=== PATIENT | male | born 1970 | race Caucasian/White ===

== ENCOUNTER 2018-04-30 17:41 | Emergency (ER) | payer OTHER ==
[~2018-04-30] VITALS: Ht 177.8 cm; Wt 95.3 kg
[2018-04-30 18:11] VITALS: Ht 177.8 cm; Wt 95.3 kg
[2018-04-30 18:47] VITALS: BP 152/103
== END 2018-04-30 18:47 | disposition home or self-care (01) ==
LOC: ED 17:41
DX: S82.892A Other fracture of left lower leg, initial encounter for closed fracture (principal); X58.XXXA Exposure to other specified factors, initial encounter; Y93.89 Activity, other specified; Y92.89 Other specified places as the place of occurrence of the external cause; Y99.8 Other external cause status

== ENCOUNTER 2018-08-05 17:55 | Inpatient (IN) | payer OTHER ==
[~2018-08-05] VITALS: Ht 177.8 cm; Wt 97.0 kg
[2018-08-05] MEDS ORDERED: TRAMADOL HCL50 MG PO (19:08)
[2018-08-05] MEDS ORDERED: IBUPROFEN400 MG PO (19:09)
[2018-08-05 19:18] LABS: BASOPHIL % 0.8 % (0-2); CALCIUM 7.8 mg/dL (8.5-10.1); CARBON DIOXIDE 24.7 mmol/L (21-32); CHLORIDE SERUM 104 mmol/L (98-107); CREATININE SERUM 1.1 mg/dL (0.7-1.3); GFR1 > 60 mL/min; GLUCOSE SERUM 128 mg/dL (74-106); PLATELET COUNT 209 x10^3mcL (130-400); RED CELL DISTRIBUTION WIDTH 13.9 % (11.5-14.5); SODIUM SERUM 138 mmol/L (136-145)
[2018-08-05 19:37] LABS: AMPHETAMINE QUAL UR NONE DETECTED (See below)
[2018-08-05 20:11] LABS: T3 TOTAL 0.95 ng/mL
[2018-08-05 20:19] LABS: AMYLASE 66 U/L (25-115); HDL CHOLESTEROL 46 mg/dL (40-60); LIPASE 214 IU/L (73-393); MAGNESIUM 2.1 mg/dL (1.8-2.4); PHOSPHOROUS 3.4 mg/dL (2.5-4.9)
[2018-08-05 20:25] LABS: CHOLESTEROL 230 mg/dL (<200); TRIGLYCERIDES 526 mg/dL (<150)
[2018-08-05 20:31] VITALS: BP 151/103
[2018-08-05 20:33] VITALS: Ht 177.8 cm; Wt 97.0 kg
[2018-08-05 20:45] LABS: FREE T4 1.25 ng/dL (0.76-1.46); FREE THYROXINE INDEX 3.3 ug/dL (1.4-4.5)
[2018-08-06 05:23] VITALS: BP 137/84
[2018-08-06 06:28] LABS: CALCIUM 7.3 mg/dL (8.5-10.1); CHLORIDE SERUM 106 mmol/L (98-107); CREATININE SERUM 0.9 mg/dL (0.7-1.3); GFR1 > 60 mL/min; GLUCOSE SERUM 99 mg/dL (74-106); POTASSIUM SERUM 3.7 mmol/L (3.5-5.1); SODIUM SERUM 137 mmol/L (136-145)
[2018-08-06 06:29] LABS: BASOPHIL % 0.7 % (0-2); PLATELET COUNT 158 x10^3mcL (130-400); RED CELL DISTRIBUTION WIDTH 14.5 % (11.5-14.5)
[2018-08-06 09:43] VITALS: BP 156/94
[2018-08-06 13:35] VITALS: BP 159/96
[2018-08-06 16:23] VITALS: BP 170/98
[2018-08-06 20:25] VITALS: BP 173/101
[2018-08-06 22:35] VITALS: BP 141/87
[2018-08-07 05:43] VITALS: BP 164/96
[2018-08-07 06:33] VITALS: BP 168/96
[2018-08-07 07:18] LABS: CHLORIDE SERUM 105 mmol/L (98-107); CREATININE SERUM 0.8 mg/dL (0.7-1.3); GFR1 > 60 mL/min; GLUCOSE SERUM 95 mg/dL (74-106); POTASSIUM SERUM 3.6 mmol/L (3.5-5.1); SODIUM SERUM 136 mmol/L (136-145)
[2018-08-07 07:19] LABS: BASOPHIL % 0.9 % (0-2); RED CELL DISTRIBUTION WIDTH 13.9 % (11.5-14.5)
[2018-08-07 08:07] LABS: PLATELET COUNT 111 x10^3mcL (130-400)
[2018-08-07 09:30] VITALS: BP 155/101
[2018-08-07 13:00] VITALS: BP 159/84
[2018-08-07 17:43] VITALS: BP 158/98
[2018-08-07 20:58] VITALS: BP 166/95
[2018-08-08] VITALS (7 sets, daily range): BP systolic 140–155; BP diastolic 86–99
[2018-08-08 06:23] LABS: BASOPHIL % 0.6 % (0-2); RED CELL DISTRIBUTION WIDTH 13.9 % (11.5-14.5)
[2018-08-08 06:32] LABS: CALCIUM 8.2 mg/dL (8.5-10.1); CARBON DIOXIDE 27.5 mmol/L (21-32); CHLORIDE SERUM 105 mmol/L (98-107); CREATININE SERUM 0.9 mg/dL (0.7-1.3); GFR1 > 60 mL/min; GLUCOSE SERUM 88 mg/dL (74-106); POTASSIUM SERUM 3.9 mmol/L (3.5-5.1); SODIUM SERUM 141 mmol/L (136-145)
[2018-08-08 06:45] LABS: PLATELET COUNT 96 x10^3mcL (130-400)
[2018-08-09 05:05] VITALS: BP 133/88
[2018-08-09 06:32] LABS: BASOPHIL % 0.6 % (0-2); RED CELL DISTRIBUTION WIDTH 13.8 % (11.5-14.5)
[2018-08-09 06:44] LABS: CALCIUM 8.6 mg/dL (8.5-10.1); CARBON DIOXIDE 28.7 mmol/L (21-32); CHLORIDE SERUM 106 mmol/L (98-107); GFR1 > 60 mL/min; GLUCOSE SERUM 88 mg/dL (74-106); MAGNESIUM 1.9 mg/dL (1.8-2.4); PHOSPHOROUS 5.1 mg/dL (2.5-4.9); SODIUM SERUM 143 mmol/L (136-145)
[2018-08-09 06:55] LABS: PLATELET COUNT 98 x10^3mcL (130-400)
[2018-08-09 09:41] VITALS: BP 152/87
[2018-08-09 12:41] VITALS: BP 142/79
[2018-08-09 17:21] VITALS: BP 149/91
[2018-08-09 20:24] VITALS: BP 145/87
[2018-08-10] VITALS (13 sets, daily range): BP systolic 14–163; BP diastolic 87–96
[2018-08-10 06:45] LABS: CALCIUM 8.9 mg/dL (8.5-10.1); CARBON DIOXIDE 28.6 mmol/L (21-32); CHLORIDE SERUM 106 mmol/L (98-107); CREATININE SERUM 0.9 mg/dL (0.7-1.3); GFR1 > 60 mL/min; GLUCOSE SERUM 82 mg/dL (74-106); MAGNESIUM 2.1 mg/dL (1.8-2.4); PHOSPHOROUS 4.1 mg/dL (2.5-4.9); POTASSIUM SERUM 3.6 mmol/L (3.5-5.1); SODIUM SERUM 142 mmol/L (136-145)
[2018-08-10 06:50] LABS: BASOPHIL % 0.6 % (0-2); RED CELL DISTRIBUTION WIDTH 13.4 % (11.5-14.5)
[2018-08-10 06:54] LABS: PLATELET COUNT 115 x10^3mcL (130-400)
[2018-08-11 05:35] VITALS: BP 153/87
[2018-08-11 06:42] LABS: BASOPHIL % 0.3 % (0-2); RED CELL DISTRIBUTION WIDTH 14.4 % (11.5-14.5)
[2018-08-11 07:02] LABS: PLATELET COUNT 119 x10^3mcL (130-400)
[2018-08-11 07:08] LABS: CALCIUM 8.9 mg/dL (8.5-10.1); CHLORIDE SERUM 105 mmol/L (98-107); CREATININE SERUM 0.9 mg/dL (0.7-1.3); GFR1 > 60 mL/min; GLUCOSE SERUM 79 mg/dL (74-106); MAGNESIUM 2.1 mg/dL (1.8-2.4); PHOSPHOROUS 4.3 mg/dL (2.5-4.9); SODIUM SERUM 140 mmol/L (136-145)
[2018-08-11 09:16] VITALS: BP 140/92
[2018-08-11 14:15] VITALS: BP 137/85
[2018-08-11 23:04] VITALS: BP 116/82
[2018-08-12 03:12] VITALS: BP 104/61
[2018-08-12 05:35] LABS: BASOPHIL % 0.2 % (0-2); PLATELET COUNT 157 x10^3mcL (130-400); RED CELL DISTRIBUTION WIDTH 14.5 % (11.5-14.5)
[2018-08-12 05:53] LABS: CALCIUM 8.2 mg/dL (8.5-10.1); CARBON DIOXIDE 26.6 mmol/L (21-32); CHLORIDE SERUM 107 mmol/L (98-107); CREATININE SERUM 1.1 mg/dL (0.7-1.3); GFR1 > 60 mL/min; GLUCOSE SERUM 119 mg/dL (74-106); POTASSIUM SERUM 4.1 mmol/L (3.5-5.1); SODIUM SERUM 144 mmol/L (136-145)
[2018-08-12 07:30] VITALS: BP 121/82
[2018-08-12 11:47] VITALS: BP 115/72
[2018-08-12 20:39] VITALS: BP 117/71
[2018-08-13 05:19] VITALS: BP 124/76
[2018-08-13 06:13] LABS: BASOPHIL % 0.3 % (0-2); PLATELET COUNT 158 x10^3mcL (130-400)
[2018-08-13 06:38] LABS: RED CELL DISTRIBUTION WIDTH 14.8 % (11.5-14.5)
[2018-08-13 06:52] LABS: CALCIUM 8.4 mg/dL (8.5-10.1); CARBON DIOXIDE 25.9 mmol/L (21-32); CHLORIDE SERUM 108 mmol/L (98-107); CREATININE SERUM 0.9 mg/dL (0.7-1.3); GFR1 > 60 mL/min; GLUCOSE SERUM 89 mg/dL (74-106); POTASSIUM SERUM 3.6 mmol/L (3.5-5.1); SODIUM SERUM 141 mmol/L (136-145)
[2018-08-13 09:31] VITALS: BP 113/70
[2018-08-13 12:29] VITALS: BP 118/72
[2018-08-13 17:30] VITALS: BP 130/78
[2018-08-13 20:56] VITALS: BP 118/72
[2018-08-14 05:25] VITALS: BP 140/88
[2018-08-14 06:16] LABS: CARBON DIOXIDE 28.7 mmol/L (21-32); CHLORIDE SERUM 111 mmol/L (98-107); CREATININE SERUM 0.9 mg/dL (0.7-1.3); GFR1 > 60 mL/min; GLUCOSE SERUM 90 mg/dL (74-106); POTASSIUM SERUM 3.7 mmol/L (3.5-5.1); SODIUM SERUM 147 mmol/L (136-145)
[2018-08-14 06:46] LABS: BASOPHIL % 0.6 % (0-2); PLATELET COUNT 191 x10^3mcL (130-400)
[2018-08-14 07:02] LABS: RED CELL DISTRIBUTION WIDTH 14.7 % (11.5-14.5)
[2018-08-14 09:38] VITALS: BP 122/77
[2018-08-14 12:49] VITALS: BP 132/84
[2018-08-14 17:00] VITALS: BP 137/81
[2018-08-14 20:20] VITALS: BP 123/78
[2018-08-15 05:51] VITALS: BP 126/79
[2018-08-15 06:36] LABS: BASOPHIL % 0.6 % (0-2); CALCIUM 8.3 mg/dL (8.5-10.1); CARBON DIOXIDE 27.7 mmol/L (21-32); CHLORIDE SERUM 112 mmol/L (98-107); CREATININE SERUM 0.9 mg/dL (0.7-1.3); GFR1 > 60 mL/min; GLUCOSE SERUM 91 mg/dL (74-106); PLATELET COUNT 249 x10^3mcL (130-400); POTASSIUM SERUM 3.9 mmol/L (3.5-5.1); RED CELL DISTRIBUTION WIDTH 13.6 % (11.5-14.5); SODIUM SERUM 149 mmol/L (136-145)
[2018-08-15 08:56] VITALS: BP 135/91
[2018-08-15 13:09] VITALS: BP 139/87
[2018-08-15 21:47] VITALS: BP 137/87
[2018-08-16 06:01] VITALS: BP 137/85
[2018-08-16 06:32] LABS: BASOPHIL % 0.4 % (0-2); PLATELET COUNT 269 x10^3mcL (130-400)
[2018-08-16 06:53] LABS: RED CELL DISTRIBUTION WIDTH 14.8 % (11.5-14.5)
[2018-08-16 07:00] LABS: CALCIUM 8.8 mg/dL (8.5-10.1); CARBON DIOXIDE 28.3 mmol/L (21-32); CHLORIDE SERUM 108 mmol/L (98-107); GFR1 > 60 mL/min; GLUCOSE SERUM 87 mg/dL (74-106); POTASSIUM SERUM 4.1 mmol/L (3.5-5.1); SODIUM SERUM 145 mmol/L (136-145)
[2018-08-16 09:21] VITALS: BP 140/85
[2018-08-16] MEDS ORDERED: XARELTO15 M1 PO (11:10)
[2018-08-16] MEDS ORDERED: ZOSYN IV (11:10)
[2018-08-16 12:16] VITALS: BP 125/78
[2018-08-16 13:01] VITALS: BP 125/78
[2018-08-16] MEDS ORDERED: APAP/OXYCODONE1 TA4 PO (13:37)
== END 2018-08-16 14:00 | DRG 181 ==
LOC: ED 17:55 → MU 19:00 → DU 19:00 → MU 20:00 → DU 23:38 → IC 08-11 22:30 → DU 08-12 16:09
PROVIDERS: Emergency Medicine; Family Medicine; Internal Medicine; Pediatrics Pediatric Cardiology; Surgery
PROC: B41F1ZZ Fluoroscopy of Right Lower Extremity Arteries using Low Osmolar Contrast (ICD-10-PCS; 2018-08-10)
PROC: B4101ZZ Fluoroscopy of Abdominal Aorta using Low Osmolar Contrast (ICD-10-PCS; principal; 2018-08-10 09:00)
PROC: 04CK0ZZ Extirpation of Matter from Right Femoral Artery, Open Approach (ICD-10-PCS; 2018-08-11)
PROC: 061M09Y Bypass Right Femoral Vein to Lower Vein with Autologous Venous Tissue, Open Approach (ICD-10-PCS; 2018-08-11)
DX: I82.4Z1 Acute embolism and thrombosis of unspecified deep veins of right distal lower extremity (principal); N17.0 Acute kidney failure with tubular necrosis; L03.115 Cellulitis of right lower limb; D69.6 Thrombocytopenia, unspecified; E87.0 Hyperosmolality and hypernatremia; R74.0 Nonspecific elevation of levels of transaminase and lactic acid dehydrogenase [LDH]; E80.6 Other disorders of bilirubin metabolism; F17.210 Nicotine dependence, cigarettes, uncomplicated; K76.0 Fatty (change of) liver, not elsewhere classified; L97.919 Non-pressure chronic ulcer of unspecified part of right lower leg with unspecified severity; I70.201 Unspecified atherosclerosis of native arteries of extremities, right leg; D72.829 Elevated white blood cell count, unspecified; Z68.32 Body mass index [BMI] 32.0-32.9, adult
CPT/HCPCS: 83880; 84439; 97110-GP; 97116-GP; 97530-GP; C1758; C1769; C1884; C1887; C1894; J0295; J0461; J0690; J1170; J1200; J1644; J1650; J2001; J2250; J2270; J2405; J2543; J3010; J3370; J3480; J3490; J7030; J7040; J7050; Q0092; Q9967

== ENCOUNTER 2018-08-26 08:43 | Emergency (ER) | payer OTHER ==
[~2018-08-26] VITALS: Ht 177.8 cm; Wt 95.3 kg
[~2018-08-26 08:43] MED LIST: APAP/OXYCODONE1 TA4 PO; IBUPROFEN400 MG PO; TRAMADOL HCL50 MG PO; XARELTO15 M1 PO; ZOSYN IV
[2018-08-26 08:46] VITALS: BP 135/89; Ht 177.8 cm; Wt 95.3 kg
== END 2018-08-26 11:08 | disposition home or self-care (01) ==
LOC: ED 08:43
DX: S71.111D Laceration without foreign body, right thigh, subsequent encounter (principal); Z98.890 Other specified postprocedural states; X58.XXXD Exposure to other specified factors, subsequent encounter
CPT/HCPCS: J1885